=== PATIENT | male | born 1980 | race Caucasian/White ===

== ENCOUNTER 2020-11-18 12:33 | Emergency (ER) | payer MEDICAID ==
[~2020-11-18] VITALS: Ht 175.3 cm; Wt 108.4 kg
[2020-11-18] MEDS ORDERED: IV NS 0.9% 500 ML BAG IV ONE (13:00)
[2020-11-18 13:06] LABS: BASOPHILS % (AUTO) 0.3 % (0.0-2.0); EOSINOPHILS % (AUTO) 0.1 % (0.0-6.0); HEMATOCRIT 49 % (39-51); HEMOGLOBIN 16.3 g/dL (13.5-17.5); LYMPHOCYTES # (AUTO) 1.1 /CMM (0.8-4.8); LYMPHOCYTES % (AUTO) 23.5 % (20.0-44.0); MEAN CORPUSCULAR HGB CONC 34 g/dl (31.0-36.0); MEAN CORPUSCULAR VOLUME 86 fL (80-96); MONOCYTES # (AUTO) 0.3 /CMM (0.1-1.30); MONOCYTES % (AUTO) 6.8 % (2.0-12.0); NEUTROPHILS # (AUTO) 3.4 /CMM (1.8-8.9); NEUTROPHILS % (AUTO) 69.3 % (43.0-81.0); PLATELET COUNT (AUTO) 186 /CMM (150-450); RED BLOOD CELL COUNT(AUTO) 5.67 MIL/uL (4.5-6.0); WHITE BLOOD COUNT (AUTO) 4.9 K/uL (4.3-11.0)
[2020-11-18 13:24] LABS: CALCIUM, SERUM 8.6 mg/dL (8.5-10.1); CARBON DIOXIDE 31 mmol/L (21-32); CHLORIDE 97 mmol/L (98-107); CREATININE 1.5 mg/dL (0.6-1.3); GLUCOSE 110 mg/dL (74-106); POTASSIUM 3.4 mmol/L (3.5-5.1); SODIUM SERUM 136 mmol/L (136-145); UREA NITROGEN, BLOOD 12 mg/dL (7-18)
[2020-11-18 13:29] LABS: ALANINE AMINOTRANSFERASE 75 U/L (12-78); ALBUMIN 3.8 g/dL (3.4-5.0); ALKALINE PHOSPHATASE 57 U/L (46-116); ASPARTATE AMINOTRANSFERASE 49 U/L (15-37); BILIRUBIN,DIRECT 0.2 mg/dL (0.0-0.2); BILIRUBIN,TOTAL 0.7 mg/dL (0.2-1.0)
--- NOTE | 2020-11-18 14:22 | NUR ---
Patient discharged to home in stable condition. Written and verbal after care instructions given. Patient verbalizes understanding of instruction.
[2020-11-18 14:23] VITALS: BP 115/75
== END 2020-11-18 14:24 | disposition home or self-care (01) ==
LOC: ER 12:37
DX: U07.1 COVID-19 (principal); R55 Syncope and collapse; Z86.79 Personal history of other diseases of the circulatory system
CPT/HCPCS: 36415; 70450; 71045; 80048; 80076; 84484; 85025; 85730; 87426; 93005; 99285; C9803; U0003

== ENCOUNTER 2022-01-05 23:42 | Emergency (ER) | payer MEDICAID ==
[~2022-01-05] VITALS: Ht 175.3 cm; Wt 104.3 kg
[2022-01-06] MEDS ORDERED: METOPROLOL TARTRATE INJ 5 MG/5 ML AMPUL ONE (00:27)
[2022-01-06] MEDS ORDERED: METOPROLOL TARTRATE INJ 5 MG/5 ML AMPUL IVP ONE (00:30)
[2022-01-06 00:33] LABS: BASOPHILS % (AUTO) 0.5 % (0.0-2.0); EOSINOPHILS % (AUTO) 2.1 % (0.0-6.0); HEMATOCRIT 46 % (39-51); HEMOGLOBIN 15.5 g/dL (13.5-17.5); LYMPHOCYTES # (AUTO) 2.5 K/uL (0.8-4.8); LYMPHOCYTES % (AUTO) 42.2 % (20.0-44.0); MEAN CORPUSCULAR HGB CONC 34 g/dl (31.0-36.0); MEAN CORPUSCULAR VOLUME 87 fL (80-96); MONOCYTES # (AUTO) 0.5 K/uL (0.1-1.30); MONOCYTES % (AUTO) 7.6 % (2.0-12.0); NEUTROPHILS # (AUTO) 2.8 K/uL (1.8-8.9); NEUTROPHILS % (AUTO) 47.6 % (43.0-81.0); PLATELET COUNT (AUTO) 245 K/uL (150-450); RED BLOOD CELL COUNT(AUTO) 5.29 MIL/uL (4.5-6.0); WHITE BLOOD COUNT (AUTO) 5.9 K/uL (4.3-11.0)
[2022-01-06 00:53] LABS: CALCIUM, SERUM 8.7 mg/dL (8.5-10.1); CARBON DIOXIDE 30 mmol/L (21-32); CHLORIDE 103 mmol/L (98-107); CREATININE 1.3 mg/dL (0.6-1.3); GLUCOSE 174 mg/dL (74-106); POTASSIUM 3.3 mmol/L (3.5-5.1); SODIUM SERUM 141 mmol/L (136-145); UREA NITROGEN, BLOOD 19 mg/dL (7-18)
--- NOTE | 2022-01-06 01:00 | NUR ---
BIB FOR C/O BEING SHAKY, NAUSEOUS AND HAVING HIGH HEART RATE. CHANGED INTO GOWN AND PLACED ON MONITOR AND V/S STABLE. PT TACHYCARDIC AT 116. WAS AT BEDSIDE FOR EVAL.
--- NOTE | 2022-01-06 01:04 | NUR ---
20G IV LINE ESTABLISHED AT [facility]. PATENT AND INTACT. BLOOD DRAWN AND SENT TO LAB.
[2022-01-06] MEDS ORDERED: METO25TA6 PO (01:41)
--- NOTE | 2022-01-06 02:07 | NUR ---
Patient discharged to home in stable condition. Written and verbal after care instructions given. Patient verbalizes understanding of instruction. IV line discontinued and 2x2 gauze applied to site without incident.
[2022-01-06 02:12] VITALS: BP 132/68
== END 2022-01-06 02:12 | disposition home or self-care (01) ==
LOC: ER 23:44
DX: R00.0 Tachycardia, unspecified (principal); I10 Essential (primary) hypertension; J45.909 Unspecified asthma, uncomplicated; Z98.890 Other specified postprocedural states
CPT/HCPCS: 36415; 71045; 80048; 84484; 85025; 93005 ×4; 96374; 99285; J3490

== ENCOUNTER 2023-02-16 20:30 | Emergency (ER) | payer MEDICAID ==
[~2023-02-16] VITALS: Ht 175.3 cm; Wt 99.8 kg
[~2023-02-16 20:30] MED LIST: METO25TA6 PO
--- NOTE | 2023-02-16 22:39 | NUR ---
Pt is noted alert, responsive as he came from home C/O Right Foot pain . Pt care continue as MD noted at bedside while awaits orders.
[2023-02-16] MEDS ORDERED: OXYC-128 PO (23:45)
[2023-02-16] MEDS ORDERED: NABU-141 PO (23:45)
--- NOTE | 2023-02-16 23:51 | NUR ---
Patient discharged to home in stable condition. Written and verbal after care instructions given. Patient verbalizes understanding of instruction.Pt ambulatory with a steady gait
[2023-02-16 23:56] VITALS: BP 120/74
== END 2023-02-16 23:51 | disposition home or self-care (01) ==
LOC: ER 20:34
DX: M72.2 Plantar fascial fibromatosis (principal); J45.909 Unspecified asthma, uncomplicated; Z79.899 Other long term (current) drug therapy
CPT/HCPCS: 73630-TC

== ENCOUNTER 2024-03-02 21:43 | Emergency (ER) | payer BC, MEDICAID ==
[~2024-03-02] VITALS: Ht 175.3 cm; Wt 101.2 kg
[~2024-03-02 21:43] MED LIST changes: +NABU-141 PO; +OXYC-128 PO
[2024-03-02 22:46] VITALS: TEMP 98.9
[2024-03-02 23:48] LABS: BASOPHILS % (AUTO) 0.5 % (0.0-2.0); EOSINOPHILS # (AUTO) 0.1 K/uL (0.0-0.7); EOSINOPHILS % (AUTO) 1.3 % (0.0-6.0); HEMATOCRIT 50 % (39-51); LYMPHOCYTES # (AUTO) 1.8 K/uL (0.8-4.8); LYMPHOCYTES % (AUTO) 21.8 % (20.0-44.0); MEAN CORPUSCULAR HEMOGLOBIN 29 PG (26.0-33.0); MEAN CORPUSCULAR HGB CONC 34 g/dl (31.0-36.0); MEAN CORPUSCULAR VOLUME 86 fL (80-96); MONOCYTES # (AUTO) 0.8 K/uL (0.1-1.30); NEUTROPHILS # (AUTO) 5.3 K/uL (1.8-8.9); NEUTROPHILS % (AUTO) 66.4 % (43.0-81.0); PLATELET COUNT (AUTO) 278 K/uL (150-450); RED CELL DISTRIBUTION WIDTH 13.3 % (11.5-15.0)
[2024-03-03 00:07] LABS: INR 1.04 (0.91-1.10); PARTIAL THROMBOPLASTIN TIME 30.2 SEC (24.3-34.3)
[2024-03-03 00:29] LABS: CALCIUM, SERUM 9.7 mg/dL (8.5-10.1); CARBON DIOXIDE 32 mmol/L (21-32); CHLORIDE 97 mmol/L (98-107); CREATININE 1.1 mg/dL (0.6-1.3); GLUCOSE 97 mg/dL (74-106); POTASSIUM 3.4 mmol/L (3.5-5.1); SODIUM SERUM 138 mmol/L (136-145); UREA NITROGEN, BLOOD 21 mg/dL (7-18)
[2024-03-03 00:36] LABS: ALANINE AMINOTRANSFERASE 34 U/L (12-78); ALBUMIN 4.3 g/dL (3.4-5.0); ALKALINE PHOSPHATASE 83 U/L (46-116); ASPARTATE AMINOTRANSFERASE 17 U/L (15-37); BILIRUBIN,DIRECT 0.3 mg/dL (0.0-0.2); BILIRUBIN,TOTAL 1.6 mg/dL (0.2-1.0); TOTAL PROTEIN, SERUM 8.8 g/dL (6.4-8.2)
[2024-03-03] MEDS ORDERED: METOPROLOL TARTRATE INJ 5 MG/5 ML AMPUL ONE (00:47)
[2024-03-03 00:53] VITALS: BP 114/89; O2SAT 96
[2024-03-03] MEDS: METOPROLOL TARTRATE INJ 5 MG/5 ML AMPUL IV ONE (00:53)
== END 2024-03-03 01:20 | disposition home or self-care (01) ==
LOC: ER 21:45
DX: R00.0 Tachycardia, unspecified (principal); I10 Essential (primary) hypertension; J45.909 Unspecified asthma, uncomplicated
CPT/HCPCS: 99285; 71045; 93005; 85025; 80048; 80076; 85378; 36415; 84484; 85730; 96374; J3490

== ENCOUNTER 2025-05-21 07:26 | Emergency (ER) | payer SELFPAY ==
[~2025-05-21] VITALS: Ht 172.7 cm; Wt 113.4 kg
[2025-05-21 08:04] LABS: PLATELET COUNT (AUTO) 310 K/uL (150-450); RED BLOOD CELL COUNT(AUTO) 5.63 MIL/uL (4.5-6.0); RED CELL DISTRIBUTION WIDTH 13.5 % (11.5-15.0); WHITE BLOOD COUNT (AUTO) 7.7 K/uL (4.3-11.0)
[2025-05-21 08:12] LABS: CALCIUM, SERUM 9.1 mg/dL (8.5-10.1); CREATININE 1.0 mg/dL (0.6-1.3); SODIUM SERUM 138.0 mmol/L (136-145); UREA NITROGEN, BLOOD 12.0 mg/dL (7-18)
[2025-05-21 08:24] LABS: NT-PRO BNP 14.0 pg/mL (0-125)
[2025-05-21 10:45] VITALS: BP 125/80; TEMP 98.5; O2SAT 98
== END 2025-05-21 10:47 | disposition home or self-care (01) ==
LOC: ER 07:26
DX: R06.00 Dyspnea, unspecified (principal); R94.31 Abnormal electrocardiogram [ECG] [EKG]; R42 Dizziness and giddiness; I10 Essential (primary) hypertension; J45.909 Unspecified asthma, uncomplicated; Z79.899 Other long term (current) drug therapy; Z98.890 Other specified postprocedural states; Z86.79 Personal history of other diseases of the circulatory system; Z20.822 Contact with and (suspected) exposure to COVID-19
CPT/HCPCS: 36415; 71045-TC; 80048-TC; 83735-TC; 83880; 84484-TC; 85025-TC